=== PATIENT | male | born 1960 | race African-American/Black ===

== ENCOUNTER 2020-08-17 14:20 | Emergency (ER) | payer MEDICAID ==
[~2020-08-17] VITALS: Ht 180.3 cm; Wt 77.0 kg
[2020-08-17 14:22] VITALS: BP 122/89
== END 2020-08-17 18:59 | disposition left against medical advice (07) ==
LOC: ER 14:30
DX: Z53.21 Procedure and treatment not carried out due to patient leaving prior to being seen by health care provider (principal)
CPT/HCPCS: 93005